=== PATIENT | female | born 1990 | race Caucasian/White ===

== ENCOUNTER 2022-10-15 21:01 | Emergency (ER) | payer OTHER ==
[~2022-10-15] VITALS: Ht 175.3 cm; Wt 70.8 kg
[2022-10-16 00:29] VITALS: BP 124/77
--- NOTE | 2022-10-17 12:28 | EKG ---
[facility] [address] [facility] [place] [address] Signed Normal sinus rhythm Septal infarct , age undetermined Abnormal ECG No previous ECGs available Confirmed by BABITA TOWNSEND MD ([id number]) on 10/17/2022 12:28:30 PM Electronically Signed By: BABITA TOWNSEND MD 10/17/22 1228 PATIENT NAME: COLT CARR Electrocardiogram DATE OF : 88 PHYSICIAN: BABITA TOWNSEND MD REPORT #: [id number] REPORT IS CONFIDENTIAL AND NOT TO BE RELEASED WITHOUT AUTHORIZATION
== END 2022-10-16 00:35 | disposition home or self-care (01) ==
LOC: ED 21:01
DX: E86.0 Dehydration (principal)
CPT/HCPCS: 36415; 80053; 83735; 84443; 84484; 84703; 85025; 93005; 93010; 96360; 99284-25; J7121